=== PATIENT | female | born 1950 | race Caucasian/White ===

== ENCOUNTER 2019-03-08 06:45 | Emergency (ER) | payer MEDICARE, OTHER ==
[2008-09-16 06:13] VITALS: BP 100/76
[~2019-03-08] VITALS: Ht 152.4 cm; Wt 53.6 kg
[~2019-03-08 06:45] MED LIST: AMITRIPTYLINE H25 M1 PO; CALCIUM 600MG+D1 TAB PO; CALCIUM WITH D1 CTB PO; CENTRUM1 TAB PO; DISALCID750 MG PO; DOXYCYCLINE 10100 MG PO; EVISTA 60MG60 MG/TAB PO; LORTAB 5/500 501 TAB PO; LORTAB 7.5/5001 TAB PO; NEXIUM 40MG40 MG PO; NORCO 325 MG-101 TAB PO; NORCO 325 MG-51 TAB PO; NORCO 325 MG-7.1 TAB PO; NORVASC 5MG5 MG/TAB PO; PREDNISONE 5MG5 MG PO; PREDNISONE1 MG PO; PRILOSEC 20MG20 MG PO; PRINIVIL20 MG PO; PRINZIDE 12.5 M1 TA1 PO; REFRESH CELLUVI1 SOL OP; SALSALATE750 MG PO; VALIUM 5MG T5 MG/TAB PO; ZADITOR 5 ML5 ML OP; ZESTRIL 20MG TA20 MG PO; ZITHROMAX 250M250 MG PO; ZOCOR 20MG20 MG PO; ZOFRAN 4MG T4 MG/TAB PO
[2019-03-08 06:50] VITALS: TEMP 97.9
[2019-03-08] MEDS ORDERED: NORVASC 10MG10 MG PO (07:13)
[2019-03-08] MEDS ORDERED: NEXIUM 40MG40 MG PO (07:14)
[2019-03-08] MEDS ORDERED: ZADITOR 5 ML5 ML OP (07:14)
[2019-03-08] MEDS ORDERED: AMITRIPTYLINE H25 M1 PO (07:14)
[2019-03-08 07:36] LABS: BASO # 0.1 (0.0-0.2); BASO % 1.2 % (0.0-2.0); EOS # 0.2 (0.0-0.7); GRAN # 2.8 (1.4-6.5); GRAN % 55.2 % (42.2-75.2); HEMATOCRIT 42.8 % (37.0-47.0); HEMOGLOBIN 13.7 g/dl (12.5-16.0); LYMPH # 1.3 (1.2-3.4); MEAN CELL VOLUME 84 fl (80.0-100.0); MEAN CORPUSCULAR HEMOGLOBIN 27 pg (27.0-31.0); MEAN CORPUSCULAR HGB CONC 32 g/dl (33.0-37.0); MEAN PLATELET VOLUME 9.2 fl (7.4-10.4); MONO # 0.7 (0.1-0.6); MONO % 13.4 % (1.7-9.3); PLATELET COUNT 312 K/mm3 (130-400); REDCELL DISTRIBUTION WIDTH-CV 15.9 % (11.5-14.5)
[2019-03-08 07:44] LABS: BILIRUBIN,TOTAL 0.4 mg/dL (0.0-1.0); CALCIUM 8.9 mg/dL (8.4-10.2); CREATININE, serum 0.58 (0.52-1.25); POTASSIUM 3.1 mmol/L (3.4-5.0); TOTAL PROTEIN 7.9 gm/dL (6.4-8.2)
[2019-03-08 08:50] LABS: COLLECTION METHOD CLEAN CATCH
[2019-03-08 09:02] LABS: MUCOUS Present /lpf; PH 5 (5-8); SQUAMOUS EPITHELIAL 0-2 /hpf; URINE APPEARANCE Clear; URINE BACTERIA None Seen /hpf; URINE BILIRUBIN Negative (NEGATIVE); URINE BLOOD Negative (NEGATIVE); URINE COLOR Yellow; URINE GLUCOSE Negative (NEGATIVE); URINE KETONE Trace (NEGATIVE); URINE LEUKOCYTE ESTERASE 3+ (NEGATIVE); URINE NITRATE Negative (NEGATIVE); URINE PROTEIN(semi-quant) Negative (NEGATIVE); URINE RBC 0-2 /hpf; URINE UROBILINOGEN Negative (NEGATIVE)
[2019-03-08] MEDS ORDERED: OMNICEF 300MG300 MG PO (09:11)
[2019-03-08] MEDS ORDERED: LIDODERM 5% PATC1 EA TP (09:42)
[2019-03-08] MEDS ORDERED: NORCO 325 MG-7.1 TAB PO (09:42)
[2019-03-08] MEDS ORDERED: FLEXERIL 1010 MG/TAB PO (09:42)
[2019-03-08 10:17] VITALS: BP 129/99; PULSE 88
[2019-03-10] MEDS ORDERED: LEVAQUIN 750MG750 M1 PO (02:33)
== END 2019-03-08 10:29 | disposition home or self-care (01) ==
LOC: COL.ER 06:45
PROVIDERS: Emergency Medicine
DX: N12 Tubulo-interstitial nephritis, not specified as acute or chronic (principal); M48.56XG Collapsed vertebra, not elsewhere classified, lumbar region, subsequent encounter for fracture with delayed healing; M06.9 Rheumatoid arthritis, unspecified; Z79.51 Long term (current) use of inhaled steroids; Z98.890 Other specified postprocedural states
CPT/HCPCS: A4216; J0696; J2270; J2405; J7030; Q9967

== ENCOUNTER 2019-03-26 06:32 | Emergency (ER) | payer MEDICARE, OTHER ==
[2008-09-16 06:13] VITALS: BP 100/76
[~2019-03-26] VITALS: Ht 152.4 cm; Wt 52.7 kg
[~2019-03-26 06:32] MED LIST changes: +FLEXERIL 1010 MG/TAB PO; +LEVAQUIN 750MG750 M1 PO; +LIDODERM 5% PATC1 EA TP; +NORVASC 10MG10 MG PO; +OMNICEF 300MG300 MG PO
[2019-03-26 06:36] VITALS: TEMP 97
[2019-03-26] MEDS ORDERED: FLEXERIL 1010 MG/TAB PO (07:24)
[2019-03-26] MEDS ORDERED: LIDODERM 5% PATC1 EA TP (07:24)
[2019-03-26 07:26] LABS: BASO # 0.1 (0.0-0.2); BASO % 1.1 % (0.0-2.0); EOS # 0.1 (0.0-0.7); EOS % 1.5 % (0-4.0); GRAN # 3.7 (1.4-6.5); GRAN % 56.6 % (42.2-75.2); HEMATOCRIT 45.7 % (37.0-47.0); HEMOGLOBIN 14.8 g/dl (12.5-16.0); LYMPH # 1.7 (1.2-3.4); LYMPH % 26.6 % (20.0-51.0); MEAN CELL VOLUME 84 fl (80.0-100.0); MEAN CORPUSCULAR HEMOGLOBIN 27 pg (27.0-31.0); MEAN CORPUSCULAR HGB CONC 32 g/dl (33.0-37.0); MEAN PLATELET VOLUME 9.4 fl (7.4-10.4); MONO # 0.9 (0.1-0.6); MONO % 13.9 % (1.7-9.3); PLATELET COUNT 420 K/mm3 (130-400); RED BLOOD COUNT 5.46 M/mm3 (4.10-5.30); REDCELL DISTRIBUTION WIDTH-CV 15.9 % (11.5-14.5)
[2019-03-26 07:32] LABS: ALANINE AMINOTRANSFERASE < 6 U/L (9-52); ALBUMIN 4.1 gm/dL (3.5-5.0); ALKALINE PHOSPHATASE 130 U/L (50-136); ANION GAP 15 mmol/L (7-16); AST,SGOT 51 U/L (15-37); BILIRUBIN,TOTAL 0.4 mg/dL (0.0-1.0); BLOOD UREA NITROGEN 18 mg/dL (7-17); CALCIUM 9.3 mg/dL (8.4-10.2); CARBON DIOXIDE 28 mmol/L (22-30); CHLORIDE 100 mmol/L (98-107); CREATININE, serum 0.58 (0.52-1.25); GLUCOSE 96 mg/dL (74-106); SODIUM 143 mmol/L (137-145); TOTAL PROTEIN 8.4 gm/dL (6.4-8.2)
[2019-03-26 08:48] LABS: COLLECTION METHOD CLEAN CATCH
[2019-03-26 08:56] LABS: PH 5 (5-8); SQUAMOUS EPITHELIAL 0-2 /hpf; URINE APPEARANCE Clear; URINE BACTERIA None Seen /hpf; URINE BILIRUBIN Negative (NEGATIVE); URINE BLOOD Negative (NEGATIVE); URINE COLOR Yellow; URINE GLUCOSE Negative (NEGATIVE); URINE KETONE 1+ (NEGATIVE); URINE LEUKOCYTE ESTERASE 2+ (NEGATIVE); URINE NITRATE Negative (NEGATIVE); URINE PROTEIN(semi-quant) Negative (NEGATIVE); URINE RBC 0-2 /hpf; URINE UROBILINOGEN Negative (NEGATIVE)
[2019-03-26] MEDS ORDERED: CIPRO 500MG TA500 MG PO ×2 (09:11)
[2019-03-26] MEDS ORDERED: OMNICEF 300MG300 MG PO (09:15)
[2019-03-26 09:30] VITALS: BP 130/93; PULSE 92
[2019-03-28] MEDS ORDERED: CIPRO 500MG TA500 MG PO (10:39)
== END 2019-03-26 10:17 | disposition home or self-care (01) ==
LOC: COL.ER 06:32
PROVIDERS: Emergency Medicine
DX: N39.0 Urinary tract infection, site not specified (principal); I10 Essential (primary) hypertension
CPT/HCPCS: J0692; J1885; J2270; J2405; J7030

== ENCOUNTER → 2019-12-07 | Outpatient (CLI) | payer MEDICARE, OTHER ==
[~2019-12-07] MED LIST changes: +CIPRO 500MG TA500 MG PO
== END ==
LOC: ZCOL.LAB 14:06
DX: S81.831A Puncture wound without foreign body, right lower leg, initial encounter (principal)

== ENCOUNTER → 2020-01-18 | Outpatient (CLI) | payer MEDICARE, OTHER | LOC: ZCOL.LAB 14:51 | DX: L53.9 Erythematous condition, unspecified (principal) ==

== ENCOUNTER → 2020-05-16 | Outpatient (CLI) | payer MEDICARE, OTHER | LOC: ZCOL.LAB 15:39 | DX: L03.90 Cellulitis, unspecified (principal); W55.01XA Bitten by cat, initial encounter ==

== ENCOUNTER → 2020-08-08 | Outpatient (CLI) | payer MEDICARE, OTHER | LOC: ZCOL.LAB 16:36 | DX: S81.831A Puncture wound without foreign body, right lower leg, initial encounter (principal) ==

== ENCOUNTER → 2020-08-11 | Outpatient (CLI) | payer MEDICARE, OTHER ==
[2020-08-11 08:31] LABS: ALBUMIN 4.3 gm/dL (3.5-5.0); BILIRUBIN,TOTAL 0.4 mg/dL (0.0-1.0); C-REACTIVE PROTEIN 1.6 mg/dL (0.0-0.9); CALCIUM 9.5 mg/dL (8.4-10.2); CREATININE, serum 0.63 (0.52-1.25); POTASSIUM 3.1 mmol/L (3.4-5.0); TOTAL PROTEIN 8.7 gm/dL (6.4-8.2)
[2020-08-11 08:58] LABS: BASO % 0.5 % (0.0-2.0); EOS # 0.2 (0.0-0.7); GRAN # 5.2 (1.4-6.5); GRAN % 69.4 % (42.2-75.2); HEMOGLOBIN 13.7 g/dl (12.5-16.0); LYMPH # 1.3 (1.2-3.4); LYMPH % 17.3 % (20.0-51.0); MEAN CELL VOLUME 85 fl (80.0-100.0); MEAN CORPUSCULAR HEMOGLOBIN 27 pg (27.0-31.0); MEAN CORPUSCULAR HGB CONC 32 g/dl (33.0-37.0); MEAN PLATELET VOLUME 9.9 fl (7.4-10.4); MONO # 0.8 (0.1-0.6); MONO % 10.5 % (1.7-9.3); PLATELET COUNT 363 K/mm3 (130-400); RED BLOOD COUNT 5.09 M/mm3 (4.10-5.30); REDCELL DISTRIBUTION WIDTH-CV 15.7 % (11.5-14.5)
[2020-08-11 09:54] LABS: ERYTHROCYTE SEDIMENTATION RATE 14 mm/hr (0-30)
== END ==
LOC: COL.LAB 07:42
PROVIDERS: Internal Medicine Infectious Disease
DX: L97.909 Non-pressure chronic ulcer of unspecified part of unspecified lower leg with unspecified severity (principal); S81.831A Puncture wound without foreign body, right lower leg, initial encounter; S91.051A Open bite, right ankle, initial encounter; T14.8XXD Other injury of unspecified body region, subsequent encounter; L03.90 Cellulitis, unspecified

== ENCOUNTER 2020-10-28 01:11 | Inpatient (IN) | payer MEDICARE, OTHER ==
[~2020-10-28] VITALS: Ht 152.4 cm; Wt 50.0 kg
[2020-10-28] MEDS ORDERED: NARCAN4 MG NS (02:21)
[2020-10-28 02:25] LABS: BASO % 0.6 % (0.0-2.0); EOS % 0.6 % (0-4.0); GRAN # 4.8 (1.4-6.5); GRAN % 72.3 % (42.2-75.2); HEMOGLOBIN 11.6 g/dl (12.5-16.0); LYMPH # 0.9 (1.2-3.4); LYMPH % 14.3 % (20.0-51.0); MEAN CELL VOLUME 80 fl (80.0-100.0); MEAN CORPUSCULAR HEMOGLOBIN 27 pg (27.0-31.0); MEAN CORPUSCULAR HGB CONC 33 g/dl (33.0-37.0); MEAN PLATELET VOLUME 9.1 fl (7.4-10.4); MONO # 0.8 (0.1-0.6); MONO % 11.6 % (1.7-9.3); PLATELET COUNT 309 K/mm3 (130-400); RED BLOOD COUNT 4.36 M/mm3 (4.10-5.30); REDCELL DISTRIBUTION WIDTH-CV 14.6 % (11.5-14.5)
[2020-10-28 02:35] LABS: PROTHROMBIN TIME 11.3 SECONDS (9.7-12.8)
[2020-10-28] MEDS ORDERED: PREDNISONE1 MG PO (02:35)
[2020-10-28 02:39] LABS: ALBUMIN 3.3 gm/dL (3.5-5.0); BILIRUBIN,TOTAL 0.4 mg/dL (0.0-1.0); CALCIUM 8.2 mg/dL (8.4-10.2); CREATININE, serum 0.38 (0.52-1.25); TOTAL PROTEIN 6.4 gm/dL (6.4-8.2)
--- NOTE | 2020-10-28 03:35 | NUR ---
Vancomycin Initial Dosing Pharmacy Note 70 YO F Indication/duration: NON-HEALING LLE ULCER W/NEW L HIP FX (NO REPORTED CONCERN FOR OSTEO Trough goal: 10-20 DOSING HX: NO REPORTED VANC TROUGH TO CORRELATE WITH PREVIOUS DOSING BMI: 21.5 WT: 50 KG SCR: 0.38 ESTCRCL ~110 ML/MIN T 1/2 ~ 7 H TMAX:98.9 WBC:6.6 WOUND CX - PENDING NO IMAGING AVAILABLE PT LOADED WITH VANCO 1GM X1. PT UNLIKELY TO FOLLOW POPULATION BASED KINETICS SO WILL START A MAINTENANCE DOSE OF 750MG Q18H, PT LIKELY TO HAVE SLOWER CLEARANCE. WILL MONITOR RENAL FUNCTION, LEVELS, AND MICRO FOR NEED TO ADJUST THERAPY. THANK YOU FOR THIS DOSING CONSULT!
--- NOTE | 2020-10-28 06:23 | NUR ---
Pt arrived to medical unit room 311 from ED via stretcher at 0500. Oriented to room, admission assessments and med rec completed. Pt reports 10/10 pain to right hip, IV morphine administered with minimal relief. Ice pack applied to right hip. Declines other interventions at this time. Heart RRR, lungs CTA, A&Ox4. Pt with IVs to bilateral forearms. Magnesium, potassium, NS, and Vancomycin infusing at this time. Horton in place with clear yellow output. Call light in reach.
[2020-10-28 07:34] VITALS: BP 137/83; PULSE 83; TEMP 97.6
[2020-10-28 07:59] LABS: CALCIUM 8.1 mg/dL (8.4-10.2); CREATININE, serum 0.32 (0.52-1.25); POTASSIUM 3.1 mmol/L (3.4-5.0)
[2020-10-28 11:22] VITALS: BP 123/80; PULSE 79; TEMP 98
--- NOTE | 2020-10-28 13:05 | NUR ---
MARIELA met with the patient to discuss discharge plan. The patient lives in [place] with her , Jason (ph#[phone]). She reports independence with ADLs before the fall and has a cane. The patient's primary care provider is Captain Russell at [facility] and she also receives her medications there. The patient does not have a DPOA-HC in EMR, but she states that she does have one completed and that her is her DPOA-HC. The patient has a right hip fracture. SW discussed post-acute rehab. The patient states that she would prefer to discuss this later, but is agreeable to SW sending referrals to the local facilities. MARIELA then contacted and reviewed the above information with the patient's , Jason. Jason is agreeable to post-acute rehab and would prefer a facility in [place]. He states that he will talk to the patient about the facilities and decide what their preference is. He was agreeable for SW to send referrals. MARIELA consulted IPR Director, Jina. MARIELA contacted and faxed a referral to [facility]. Awaiting screens.
--- NOTE | 2020-10-28 13:23 | NUR ---
Initial visit; Patient thanked Psych Arnp for offering prayer and God's blessings.
[2020-10-28 14:36] LABS: CREATININE, serum 0.32 (0.52-1.25)
[2020-10-28 16:19] VITALS: BP 121/84; PULSE 93; TEMP 98.4
[2020-10-28 16:26] LABS: MUCOUS Present /lpf; PH 7 (5-8); SQUAMOUS EPITHELIAL None Seen /hpf; URINE APPEARANCE Clear; URINE BACTERIA None Seen /hpf; URINE BILIRUBIN Negative (NEGATIVE); URINE BLOOD 1+ (NEGATIVE); URINE COLOR Straw; URINE GLUCOSE Negative (NEGATIVE); URINE KETONE Trace (NEGATIVE); URINE LEUKOCYTE ESTERASE Negative (NEGATIVE); URINE NITRATE Negative (NEGATIVE); URINE PROTEIN(semi-quant) Negative (NEGATIVE); URINE UROBILINOGEN Negative (NEGATIVE)
[2020-10-28 17:41] LABS: COLLECTION METHOD CLEAN CATCH
--- NOTE | 2020-10-28 19:08 | NUR ---
Received report from Jass. Seen patient awake, lying in bed. She is alert and oriented. With IV on left AC infusing NS at 100ml/hr and Potassium Chloride as piggyback. With INT on right AC. She's on room air. With bain catheter draining clear, yellow urine. Call light within reach.
[2020-10-28 20:03] VITALS: BP 127/75; PULSE 87; TEMP 98.2
--- NOTE | 2020-10-28 22:15 | NUR ---
Patient complains of pain on her IV site with Potassium infusing. Checked IV site, with good back flow. Stopped Potassium for awhile. Checked on her INT on left AC to see if I can transfer her fluids and Potassium but IV site is noted to have redness already. Removed IV site on left AC. Neisha LIEBERMAN tried to insert a new IV site. She tried twice and was able to insert on her right wrist. Decreased the rate of Potassium so it won't be that painful to her.
[2020-10-29] VITALS (14 sets, daily range): BP systolic 112–148; BP diastolic 66–88; PULSE 78–100; TEMP 97.6–98.1
--- NOTE | 2020-10-29 06:24 | NUR ---
Patient complains of right hip pain this morning. Morphine given. Ice pack placed on her right hip. Changed patient's clothes to gown. Necklace was removed and was placed in a ziplock and put inside the patient's plastic bag. Patient aware. Oral swab provided as patient cannot have water and her lips are dry.
[2020-10-29 07:38] LABS: CALCIUM 8.3 mg/dL (8.4-10.2); CREATININE, serum 0.31 (0.52-1.25); POTASSIUM 4.1 mmol/L (3.4-5.0)
--- NOTE | 2020-10-29 09:27 | NUR ---
Follow-up; Patient having surgical procedure this morning. Roof Fixer offered encouragement, prayer for a successful surgical procedure and rapid and thorough healing.
--- NOTE | 2020-10-29 11:05 | NUR ---
Patient transferred from PACU at this time. Report received per PACU. This nurse assumes responsibility of patient at 1105.
--- NOTE | 2020-10-29 11:30 | NUR ---
Patient drowsy, arouses to verbal stimuli. See assessment. RLE with drainage noted to dressing. Pulses palpable to RLE, limited ROM. Ice pack in place to RLE. No c/o at this time.
--- NOTE | 2020-10-29 13:32 | NUR ---
Agusto, at [facility], reports that they are able to accept the patient for a skilled stay.
--- NOTE | 2020-10-29 20:26 | NUR ---
Resting in bed. Assessment complete. Lungs clear. Heart sounds normal. Bowels active x4. Pulses present throughout. No edema noted. INT left AC without complications. IV left wrist infusing NS without complications. Right hip incision sites x3 covered with gauze and drainage to distal dressing. Ice applied. Horton catheter in place to dependent drainage with clear yellow urine. Patient tearful wanting to see . Educated patient regarding visitors policy. Patient voiced unhappiness regarding policy. Denies other needs at this time. Given scheduled norco for 6/10 back pain. Call light in reach. Bed alarm in place.
--- NOTE | 2020-10-29 23:16 | NUR ---
Reported right hip pain 06/30. Provided with PRN oxycodone at this time. Call light in reach.
--- NOTE | 2020-10-30 02:05 | NUR ---
Resting in bed asleep. Call light in reach.
[2020-10-30 03:58] VITALS: BP 123/70; PULSE 95; TEMP 97.6
--- NOTE | 2020-10-30 04:05 | NUR ---
Resting in bed. Denies needs. call light in reach.
--- NOTE | 2020-10-30 05:41 | NUR ---
Patient required x1 dose of oxycodone during the night for pain control with schedule norco. Otherwise uneventful night. Resting in bed this Am. call light in reach.
[2020-10-30 06:16] LABS: GRAN # 5.5 (1.4-6.5); GRAN % 84.2 % (42.2-75.2); LYMPH # 0.6 (1.2-3.4); LYMPH % 8.4 % (20.0-51.0); MEAN CELL VOLUME 83 fl (80.0-100.0); MEAN CORPUSCULAR HGB CONC 33 g/dl (33.0-37.0); MEAN PLATELET VOLUME 9.6 fl (7.4-10.4); MONO # 0.5 (0.1-0.6); MONO % 6.8 % (1.7-9.3); PLATELET COUNT 277 K/mm3 (130-400); RED BLOOD COUNT 3.59 M/mm3 (4.10-5.30)
[2020-10-30 06:20] LABS: HEMOGLOBIN 9.8 g/dl (12.5-16.0); MEAN CORPUSCULAR HEMOGLOBIN 27 pg (27.0-31.0)
[2020-10-30 06:21] LABS: HEMATOCRIT 29.8 % (37.0-47.0)
[2020-10-30 06:32] LABS: CALCIUM 7.8 mg/dL (8.4-10.2); CREATININE, serum 0.34 (0.52-1.25); POTASSIUM 3.2 mmol/L (3.4-5.0)
--- NOTE | 2020-10-30 07:09 | NUR ---
Report given to LUISANA Mancera
[2020-10-30 08:37] VITALS: BP 144/71; PULSE 102; TEMP 97.9
--- NOTE | 2020-10-30 09:33 | NUR ---
Follow-up visit; Patient thanked Plant Nursery Worker for looking in on her again this morning following her surgical procedure. Plant Nursery Worker wished her a good day and let her know Plant Nursery Worker is keeping her in Plant Nursery Worker's prayers.
[2020-10-30 11:24] VITALS: BP 130/67; PULSE 100; TEMP 98.4
--- NOTE | 2020-10-30 14:30 | NUR ---
Watch Assembly Instructor collaborated with Jina, IPR Director who met with patient today and advised patient has still not decided which rehab facility she would like to go to. Jina advised she would likely be able to accept referral. [facility] has also accepted. Jina advised patient is going to discuss the decision further with her . MARIELA contacted patient's , Jason who advised that he would likely prefer [facility] at this time as he can schedule visits there. Jason states it will ultimately be up to the patient. MARIELA contacted Agusto at [facility] and faxed clinical updates. Agusto advised he has been in contact with Jason. MARIELA will continue to follow.
--- NOTE | 2020-10-30 15:00 | NUR ---
PATIENTS MORTON CAHTETER REMOVED PER DOCTOR ORDERS. 9 MLS OF STERILE WATER ASPIRATED FROM BALLOON. TIP INTACT. PATIENT TOLERATED WELL. RIGHT AC INT DISCONTINUED DUE TO LEAKING. CALL LIGHT IN REACH. PATIENT DENIES ANY OTHER NEEDS AT THIS TIME.
--- NOTE | 2020-10-30 15:43 | NUR ---
THIS NURSE SPOKE WITH NURSE ROWLAND AT [facility]. WE DO NOT HAVE SUPPLIES AVAILABLE THAT THEY USE ON THE PATIENTS WOUND. NURSE TO STOP BY AND PROVIDE DRESSING CHANGE THE PROVIDER IS OUT OF THE OFFICE.
[2020-10-30 16:37] VITALS: BP 114/72; PULSE 92; TEMP 98.1
--- NOTE | 2020-10-30 16:39 | NUR ---
RLE DRESSING CHANGED BY WOUND CARE NURSE GLO ROWLAND. WOUND CARE NURSE REPORTS THAT THE PATIENT IS MORE CONFUSED THAN HER BASELINE. WILL CONTINUE TO MONITOR.
--- NOTE | 2020-10-30 18:41 | NUR ---
PATIENT UP TO CHAIR WITH THERAPY IN THE MORNING. PATIENT A&OX4 BUT SOME CONVERSATION IS CONFUSED. POSTIVIE PEDAL PULSES EQUAL BILATERALLY. SCD'S TO BLE. CAP REFILL <3 SECONDS. CMS INTACT. PATIENT YET TO VOID POST MORTON CATHETER REMOVAL. IV TO INT PER ORDERS. PATIENT REPOSITIONED NEEDED DURING SHIFT. WILL REPORT OFF TO ONCOMING NURSE.
--- NOTE | 2020-10-30 19:15 | NUR ---
PT TRYING TO GET OUT OF BED DURING BEDSIDE SHIFT REPORT. PT CONFUSED. UNSAFE IN ROOM 349. MOVED TO ROOM 344 BY NURSES DESK. PT IS HIGH FALL RISK.. VSS. 2:1 PIVOT TRANSFER TO BS. VOIDED LG AMT CLEAR YELLOW URINE. 1ST VOID SINCE PRAVEEN PURDY'Sabina AT 1500. BACK TO BED. BED ALARM SET. CALL LIGHTIN REACH.
--- NOTE | 2020-10-30 19:20 | NUR ---
PATIENT VOIDING POST-MORTON REMOVAL. BED ALARM ON. PATIENT HAS INCREASED CONFUSION TONIGHT. PATIENT YELLS OUT IN PAIN WHEN TRANSFERRED OR LEG IS MOVED. CALL LIGHT IN REACH.
--- NOTE | 2020-10-30 19:23 | NUR ---
PATIENT TRANSFERRED TO ROOM 344 FOR CONFUSION TO BE CLOSER TO THE DESK.
[2020-10-30 19:51] VITALS: BP 111/73; PULSE 92; TEMP 98.1
[2020-10-31] VITALS (7 sets, daily range): BP systolic 99–140; BP diastolic 73–83; PULSE 89–114; TEMP 97.5–98.5
[2020-10-31 06:55] LABS: HEMOGLOBIN 8.6 g/dl (12.5-16.0)
[2020-10-31 07:06] LABS: CALCIUM 7.9 mg/dL (8.4-10.2); CREATININE, serum 0.31 (0.52-1.25); MAGNESIUM 1.8 mg/dL (1.6-2.3); POTASSIUM 3.4 mmol/L (3.4-5.0)
--- NOTE | 2020-10-31 09:00 | NUR ---
PATIENT AM MEDICATIONS GIVEN. SHIFT ASSESSMENT COMPLETE. SKIN TEAR TO RIGHT HIP NEXT TO PROXIMAL AND MIDDLE TEGADERM DRESSINGS NOTED. NEW SHADING PRESENT ON MIDDLE DRESSING. ENTERED ROOM AND NOTIFIED OF NEW SKIN TEAR AND DRESSING SHADING. DRESSINGS REMOVED AND REPLACE WITH MULTIPLE NON-ADHERANT GAUZE PADS AND PAPER TAPE. PHYSICAL THERAPY ENTERED ROOM AND ASSISTED THE PATIENT TO THE COMMODE WITH THIS NURSE AND THEN TO THE BEDSIDE CHAIR. CALL LIGHT WITHIN REACH. LEG ELEVATED WITH PILLOW PATIENT DENIES NEEDS AT THIS TIME.
--- NOTE | 2020-10-31 13:46 | NUR ---
PATIENT AFTERNOON BP SOFT. BLOOD PRESSURE RE-TAKEN PRIOR TO NORCO ADMINISTRATION.
--- NOTE | 2020-10-31 14:13 | NUR ---
PATIENT HAD REQUESTED TO USE THE BEDPAN. WHEN CHILD CARE COORDINATOR'S CAME IN TO ASSIST PATIENT THEY NOTIFIED THIS NURSE OF BLOOD COMING THROUGH THE PATIENTS RIGHT HIP DRESSING. CALLED AND NOTIFIED THAT THE GAUZE AND TAPE DRESSING IS SATURATED. TORB TO TEAR DOWN DRESSING. APPLY STERI-STRIPS AND RE-DRESS THE RIGHT HIP, REINFORCE DRESSING NEEDED FROM TO THIS NURSE. STERISTRIPS APPLIED, PACK OF 4X4 GAUZE APPLIED TO HIP AND COVERED WITH HYPAFIX TAPE. WILL CONTINUE TO MONITOR.
--- NOTE | 2020-10-31 14:20 | NUR ---
PATIENT REPOSITIONED WITH PILLOW ELEVATING RLE AND ICE PACK APPLIED TO RIGHT HIP.
--- NOTE | 2020-10-31 16:37 | NUR ---
Field Service Engineer met with patient this morning and patient seemed to think she had already been transferred to a rehab facility. SW asked patient about her prefences about rehab and patient states her first preference is [facility]. MARIELA collaborated with GRACE Osborne who advised patient not ready for discharge today. Patient had confusion over night and had to be moved closer to nurses station. MARIELA collaborated with LUISANA Mancera throughout the day who advised that patient continued to have confusion. MARIELA contacted [facility] and faxed clinical updates. Second COVID test was ordered as first negative will be outside of 72 hour window this weekend.
--- NOTE | 2020-10-31 17:30 | NUR ---
EVENING MEDICATIONS GIVEN. RIGHT HIP DRESSING CHECKED. MIDDLE PORTION OF INCISION HAS SOME SHADING PRESENT. UPPER PORTION OF THE DRESSING REINFORCED WITH TAPE. TAPE COMING OFF DUE TO PULLING BRIEF UP AND DOWN. PATIENT IS FREQUENTLY REQUESTING TO UTILIZE THE BEDPAN. MORE OFTEN THEN NOT THE PATIENT IS UNABLE TO URINATE WHEN PLACED ON THE BEDPAN. PATIENT REFUSING THE COMMODE STATING THAT IT REQUIRES TOO MUCH EFFORT. PATIENT EDUCATED ON EXTERNAL FEMAL CATHETER. PURWICK PLACED AT THIS TIME.
--- NOTE | 2020-10-31 22:22 | NUR ---
Pt is currently resting in bed. Pt was changed due to have some incontinence of BM. Pt was able to help with rolling from side to side. Pt has her call light within reach and her bed is in lowet position.
--- NOTE | 2020-11-01 00:15 | NUR ---
Pt woke up and began to scream out someones name. The aide helped her at this time to use the bed gordon. Pt tolerated well. Pt has her call light within reach and her bed is in lowest position.
[2020-11-01 01:06] VITALS: BP 119/73; PULSE 97; TEMP 98.4
[2020-11-01 05:40] VITALS: BP 125/80; PULSE 100; TEMP 98.1
--- NOTE | 2020-11-01 05:45 | NUR ---
Pt currently resting in bed. Pt was assisted with the bed gordon. Pt dressing did have a small amount of drainage so pt dressing was changed at this time. No bleeding was noted at this time. Pt tolerated well. Pt has no other request at this time. Pt was given fresh ice water and ice to her right hip. Pt has her call light within reach and her bed is in lowest position.
[2020-11-01 06:58] LABS: HEMOGLOBIN 10.3 g/dl (12.5-16.0); MEAN CELL VOLUME 83 fl (80.0-100.0); MEAN CORPUSCULAR HEMOGLOBIN 28 pg (27.0-31.0); MEAN CORPUSCULAR HGB CONC 33 g/dl (33.0-37.0); MEAN PLATELET VOLUME 8.9 fl (7.4-10.4); PLATELET COUNT 361 K/mm3 (130-400); RED BLOOD COUNT 3.74 M/mm3 (4.10-5.30); REDCELL DISTRIBUTION WIDTH-CV 15.8 % (11.5-14.5)
[2020-11-01 06:59] LABS: CALCIUM 8.4 mg/dL (8.4-10.2); CREATININE, serum 0.33 (0.52-1.25)
[2020-11-01 07:00] LABS: HEMATOCRIT 30.9 % (37.0-47.0)
[2020-11-01 08:28] VITALS: BP 113/81; PULSE 101; TEMP 98
[2020-11-01 12:50] VITALS: BP 130/84; PULSE 114; TEMP 98.1
[2020-11-01] MEDS ORDERED: NORCO 325 MG-7.1 TAB PO (14:48)
[2020-11-01] MEDS ORDERED: ASPI325T6 PO (14:48)
[2020-11-01] MEDS ORDERED: CALCIUM 600600 MG PO (14:49)
[2020-11-01] MEDS ORDERED: TYLENOL 325MG325 MG PO (14:49)
[2020-11-01] MEDS ORDERED: SENEXON-S 50-81 EACH PO (14:49)
[2020-11-01] MEDS ORDERED: VITAMIN C500 MG PO (14:50)
[2020-11-01] MEDS ORDERED: MULTIPLE VITAMI1 TA5 PO (14:50)
[2020-11-01 15:07] VITALS: BP 130/84; PULSE 114; TEMP 98.1
--- NOTE | 2020-11-01 15:12 | NUR ---
MARIELA informed that patient's COVID test was negative and patient could transfer to [facility]. MARIELA called [facility] staff to inform of discharge. Staff stated that she could be picked up at 4pm on 11/01/20. MARIELA najera spouse to inform him of DC. DC documentation faxed to facility. Nothing further.
--- NOTE | 2020-11-01 15:48 | NUR ---
Attempted to call [facility] for patient report, no answer, VM left.
--- NOTE | 2020-11-01 16:40 | NUR ---
Attempted to call report to [facility], no answer. Patient transferred to [facility] with transportation staff at 1625. Paperwork sent.
== END 2020-11-01 16:25 | DRG 481 ==
LOC: COL.ER 01:11 → MEDICAL 02:04 → SURG 02:04 → MEDICAL 10-29 11:51 → SURG 10-30 19:26
PROVIDERS: Hospitalist; Nurse Practitioner Family; Orthopaedic Surgery; Physician Assistant; ADMIT Emergency Medicine
PROC: 0QS636Z Reposition Right Upper Femur with Intramedullary Internal Fixation Device, Percutaneous Approach (ICD-10-PCS; principal; 2020-10-29 08:30)
DX: S72.141A Displaced intertrochanteric fracture of right femur, initial encounter for closed fracture (principal); L97.929 Non-pressure chronic ulcer of unspecified part of left lower leg with unspecified severity; E87.1 Hypo-osmolality and hyponatremia; J90 Pleural effusion, not elsewhere classified; F05 Delirium due to known physiological condition; D62 Acute posthemorrhagic anemia; M06.9 Rheumatoid arthritis, unspecified; I10 Essential (primary) hypertension; E87.8 Other disorders of electrolyte and fluid balance, not elsewhere classified; Z20.828 Contact with and (suspected) exposure to other viral communicable diseases; E87.6 Hypokalemia; B96.5 Pseudomonas (aeruginosa) (mallei) (pseudomallei) as the cause of diseases classified elsewhere; E78.5 Hyperlipidemia, unspecified; R91.1 Solitary pulmonary nodule; E83.42 Hypomagnesemia; D64.9 Anemia, unspecified; Z96.652 Presence of left artificial knee joint; W19.XXXA Unspecified fall, initial encounter
CPT/HCPCS: 99223-AI; 99232-AI; 99239; A9284; C1713; J0690; J0696; J1100; J2250; J2270; J2405; J2704; J3370; J3475; J3480; J7030; J7050; J7120; J7512

== ENCOUNTER → 2020-11-04 | Outpatient (CLI) | payer MEDICARE, OTHER ==
[~2020-11-04] MED LIST changes: +ASPI325T6 PO; +CALCIUM 600600 MG PO; +MULTIPLE VITAMI1 TA5 PO; +NARCAN4 MG NS; +SENEXON-S 50-81 EACH PO; +TYLENOL 325MG325 MG PO; +VITAMIN C500 MG PO
[2020-11-04 12:25] LABS: COLLECTION METHOD CLEAN CATCH
[2020-11-04 12:33] LABS: BASO # 0.1 (0.0-0.2); BASO % 0.8 % (0.0-2.0); EOS # 0.2 (0.0-0.7); EOS % 2.9 % (0-4.0); GRAN # 5.5 (1.4-6.5); GRAN % 75.1 % (42.2-75.2); HEMOGLOBIN 11.8 g/dl (12.5-16.0); LYMPH # 0.7 (1.2-3.4); LYMPH % 9.9 % (20.0-51.0); MEAN CELL VOLUME 84 fl (80.0-100.0); MEAN CORPUSCULAR HEMOGLOBIN 27 pg (27.0-31.0); MEAN CORPUSCULAR HGB CONC 32 g/dl (33.0-37.0); MEAN PLATELET VOLUME 9.4 fl (7.4-10.4); MONO # 0.8 (0.1-0.6); MONO % 10.6 % (1.7-9.3); PLATELET COUNT 558 K/mm3 (130-400); RED BLOOD COUNT 4.38 M/mm3 (4.10-5.30)
[2020-11-04 12:38] LABS: ALBUMIN 3.7 gm/dL (3.5-5.0); BILIRUBIN,TOTAL 0.9 mg/dL (0.0-1.0); CALCIUM 9.4 mg/dL (8.4-10.2); CREATININE, serum 0.5 (0.52-1.25); POTASSIUM 3.3 mmol/L (3.4-5.0); TOTAL PROTEIN 6.9 gm/dL (6.4-8.2)
[2020-11-04 12:40] LABS: HEMATOCRIT 36.8 % (37.0-47.0)
[2020-11-04 13:01] LABS: PH 7 (5-8); SQUAMOUS EPITHELIAL None Seen /hpf; URINE APPEARANCE Clear; URINE BACTERIA None Seen /hpf; URINE BILIRUBIN Negative (NEGATIVE); URINE BLOOD Negative (NEGATIVE); URINE COLOR Yellow; URINE GLUCOSE Negative (NEGATIVE); URINE KETONE Trace (NEGATIVE); URINE LEUKOCYTE ESTERASE Negative (NEGATIVE); URINE NITRATE Negative (NEGATIVE); URINE PROTEIN(semi-quant) Negative (NEGATIVE); URINE RBC 0-2 /hpf; URINE UROBILINOGEN Negative (NEGATIVE)
== END ==
LOC: ZLAB.STJ 12:20
PROVIDERS: Family Medicine
DX: S72.141D Displaced intertrochanteric fracture of right femur, subsequent encounter for closed fracture with routine healing (principal); J90 Pleural effusion, not elsewhere classified; L97.919 Non-pressure chronic ulcer of unspecified part of right lower leg with unspecified severity; Z47.2 Encounter for removal of internal fixation device

== ENCOUNTER → 2021-01-18 | Outpatient (CLI) | payer MEDICARE, OTHER | LOC: COL.LAB 16:51 | DX: S81.801D Unspecified open wound, right lower leg, subsequent encounter (principal) ==

== ENCOUNTER 2021-11-16 08:28 | Emergency (ER) | payer MEDICARE, OTHER ==
[~2021-11-16] VITALS: Ht 144.8 cm; Wt 48.6 kg
[2021-11-16 08:30] VITALS: TEMP 97.9
[2021-11-16 11:12] LABS: BASO # 0.1 K/mm3 (0.0-0.2); BASO % 0.8 % (0.0-2.0); EOS # 0.1 K/mm3 (0.0-0.7); EOS % 1.7 % (0.0-4.0); GRAN # 5.8 K/mm3 (1.4-6.5); GRAN % 77.7 % (42.2-75.2); HEMOGLOBIN 14.1 g/dl (12.5-16.0); LYMPH % 12.8 % (20.0-51.0); MEAN CELL VOLUME 78 fl (80.0-100.0); MEAN CORPUSCULAR HEMOGLOBIN 25 pg (27-31); MEAN CORPUSCULAR HGB CONC 33 g/dl (33.0-37.0); MEAN PLATELET VOLUME 9.3 fl (7.4-10.4); MONO # 0.5 K/mm3 (0.1-0.6); MONO % 6.7 % (1.7-9.3); PLATELET COUNT 329 K/mm3 (130-400); RED BLOOD COUNT 5.55 M/mm3 (4.10-5.30); REDCELL DISTRIBUTION WIDTH-CV 16.2 % (11.5-14.5)
[2021-11-16 16:09] VITALS: BP 121/81; PULSE 80
== END 2021-11-16 16:20 | disposition short-term general hospital (02) ==
LOC: COL.ER 08:28
PROVIDERS: Family Medicine
DX: T84.84XA Pain due to internal orthopedic prosthetic devices, implants and grafts, initial encounter (principal); M25.551 Pain in right hip; I10 Essential (primary) hypertension; E78.5 Hyperlipidemia, unspecified; Z79.899 Other long term (current) drug therapy